=== PATIENT | female | born 1975 | race Caucasian/White ===

== ENCOUNTER → 2021-01-14 | Outpatient (CLI) | payer BC ==
[~2021-01-14] MED LIST: ACET250; ALLO100 PO; ALLO300; AMIT50 PO; AMOCLA875 PO; BENADRYL25 MG PO; CEPH500 PO; CIPR250 PO; CIPR500 PO; CITA20; CITA20 PO; CLON1 PO; CYCL10 PO; DOC250 PO; DOXY100 PO; ESCI20 PO; ESZO2; ESZO2 PO; FAMO20 PO; FLUO20 PO; Ferosul325 MG; GABA300 PO; HYDACE5 PO; HYDMOR4 PO; HYDPAM25; IBUP600 PO; IRON150C PO; KETO10 PO; KETO75 PO; LAMO5 PO; LEVFLO500 PO; LORA1 PO; LORA2 PO; MEDR150I; METO25ER; NAPR500 PO; ONDA4ODT MM; OXYACE5T PO; OXYACE7.5T; OXYACE7.5T PO; POTCIT10; PROM25 PO; PROM25S PR; PYRI100 PO; Prednisone20 MG PO; Prilosec Otc20 MG; RANI150 PO; RXCEPH500 PO; RXHYDACE PO; RXOXYACE PO; RXSULTRIDS PO; SERT100 PO; SULTRIDS PO; TAMS.4ER PO; TRAZ50; TRAZ50 PO; VENL75ER; ZOLP5 PO
== END ==
LOC: LAB SHORT 16:30 → LAB 16:30
DX: R21 Rash and other nonspecific skin eruption (principal)
CPT/HCPCS: 87798

== ENCOUNTER 2023-07-01 11:33 | Observation (INO) | payer BC ==
[~2023-07-01] VITALS: Ht 154.9 cm; Wt 71.2 kg
[~2023-07-01 11:33] MED LIST changes: +AMLO10 PO; +Ativan1 MG PO; +CELEXA40 M9 PO
[2023-07-01 12:12] LABS: BASOPHILS ABSOLUTE AUTO 0.07 K/mm3 (0.00-0.23); BASOPHILS PERCENT AUTO 1 % (0-2); EOSINOPHILS ABSOLUTE AUTO 0.01 K/mm3 (0.00-0.68); EOSINOPHILS PERCENT AUTO 0 % (0-6); Hematocrit 44.5 % (33.0-51.0); Hemoglobin 14.7 g/dL (11.5-16.0); IMMATURE GRAN ABSOLUTE AUTO 0.02 K/mm3 (0.00-0.10); IMMATURE GRAN PERCENT AUTO 0 % (0-1); LYMPHOCYTES ABSOLUTE AUTO 2.04 K/mm3 (0.84-5.20); LYMPHOCYTES PERCENT AUTO 19 % (21-46); MONOCYTES ABSOLUTE AUTO 0.56 K/mm3 (0.16-1.47); MONOCYTES PERCENT AUTO 5 % (4-13); Mean Corpuscular HGB 28.1 pg (26.0-34.0); Mean Corpuscular Volume 85 fL (80-100); NEUTROPHILS ABSOLUTE AUTO 7.86 K/mm3 (1.96-9.15); NEUTROPHILS PERCENT AUTO 74 % (41-73); Platelet Count 445 K/mm3 (150-400); RDW Coefficient Variation 13.5 % (11.7-14.2); RDW Standard Deviation 42.3 fL (35.1-46.3); Red Blood Cell Count 5.23 M/mm3 (3.80-5.20); White Blood Cell Count 10.56 K/mm3 (4.00-11.30)
[2023-07-01 12:23] LABS: Source, Urine Clean Catch
[2023-07-01 12:27] LABS: Acetaminophen, Random <2.0 ug/mL (10.0-30.0); Alanine Aminotransfer (ALT/SGP 17 U/L (12-78); Albumin, Blood 4.4 g/dL (3.4-5.0); Alk Phos 96 U/L (50-136); Anion Gap 6 mmol/L (6-16); Aspartate Aminotrans (AST/SGOT 17 U/L (12-37); Bilirubin, Total 0.4 mg/dL (0.1-1.0); Blood Urea Nitrogen 11 mg/dL (8-24); Bun/Creatinine Ratio 11.2 (12.0-20.0); CO2, Blood 21 mmol/L (21-32); Calcium, Blood 9.7 mg/dL (8.5-10.1); Chloride, Blood 111 mmol/L (98-108); Creatinine, Blood 0.98 mg/dL (0.40-1.00); Ethanol (Alcohol), Blood, Med <3 mg/dL; Globulin, Blood 4.4 g/dL (2.2-4.0); Glomerular Filtration Rate 71 (60-); Glucose, Blood 99 mg/dL (70-99); Potassium, Blood 3.3 mmol/L (3.5-5.5); Salicylate <1.7 mg/dL (2.8-20.0); Sodium, Blood 138 mmol/L (136-145); Total Protein, Blood 8.8 g/dL (6.4-8.2)
[2023-07-01 12:30] LABS: Appearance, Urine Hazy (Clear); Bilirubin, Urine Neg (Neg); Blood, Urine Neg (Neg); Color, Urine Yellow (P-Yellow); Glucose Qualitative, Urine Neg (Neg); Ketones, Urine 1+ (Neg); Leukocyte Esterase, Urine 2+ (Neg); Nitrite, Urine Neg (Neg); Protein, Urine 2+ (Neg); Specific Gravity, Urine 1.025 (1.003-1.022); Urobilinogen, Urine NORM (Normal)
[2023-07-01] MEDS ORDERED: VENL75ER PO (12:31)
[2023-07-01] MEDS ORDERED: QUET100 PO (12:31)
[2023-07-01 12:38] LABS: Red Blood Cells, Urine 0-2 /hpf (0-2)
[2023-07-01 12:39] LABS: Bacteria Few /hpf; Squamous Epithelial Cells Few /hpf (Few)
[2023-07-01 12:44] LABS: U Amphetamine Screen Not Detected; U Barbituate Screen Not Detected; U Benzodiazapine Screen Not Detected; U Buprenorphine Screen Not Detected; U Cannabinoids Screen Not Detected; U Cocaine Screen Not Detected; U Methadone Screen Not Detected; U Methamphetamine Screen Not Detected; U Opiates Screen Not Detected; U Oxycodone Screen Not Detected; U Phencyclidine Screen Not Detected
[2023-07-01 17:11] LABS: Influenza A, PCR NEGATIVE (NEGATIVE); Influenza B, PCR NEGATIVE (NEGATIVE); Resp Syncytial Virus, PCR NEGATIVE (NEGATIVE); SARS-Cov-2 (COVID-19) PCR, MMC NEGATIVE (NEGATIVE)
[2023-07-01] MEDS ORDERED: QUEtiapine Fumarate 100 MG Tab PO SCH (21:00)
[2023-07-02] MEDS ORDERED: Venlafaxine HCl 75 MG CapCR PO SCH (09:00)
[2023-07-02 09:06] VITALS: BP 125/94
[2023-07-02] MEDS ORDERED: EFFEXOR XR150 MG PO ×2 (11:59→12:02)
[2023-07-02] MEDS ORDERED: QUET100 PO (12:02)
== END 2023-07-02 12:49 | disposition home or self-care (01) ==
LOC: ER 11:33 → EOR 11:34
PROVIDERS: Student in an Organized Health Care Education/Training Program; ADMIT Emergency Medicine
DX: F33.9 Major depressive disorder, recurrent, unspecified (principal); F10.10 Alcohol abuse, uncomplicated; R45.851 Suicidal ideations; K21.9 Gastro-esophageal reflux disease without esophagitis; I10 Essential (primary) hypertension; R51.9 Headache, unspecified; Z79.899 Other long term (current) drug therapy
CPT/HCPCS: 0241U; 80053; 81001; 81025; 85025; 86592; 87086; 93005; 93010; 99285-25; A9270; G0378; G0480

== ENCOUNTER → 2023-11-16 | Outpatient (CLI) | payer BC ==
[~2023-11-16] MED LIST changes: +EFFEXOR XR150 MG PO; +HYDR1TAB94 PO; +IBUP800 PO; +QUET100 PO; +VENL75ER PO
[2023-11-16 12:49] LABS: Bacterial Vaginosis PCR Negative (NEGATIVE); Candida Group, PCR NOT DETECTED (NOT DETECT); Candida glabrata-krusei, PCR NOT DETECTED (NOT DETECT)
== END | disposition home or self-care (01) ==
LOC: LAB 10:29 → LAB SHORT 10:29
PROVIDERS: General Practice
DX: R10.2 Pelvic and perineal pain (principal)
CPT/HCPCS: 87481; 87661; 87801

== ENCOUNTER → 2024-02-12 | Outpatient (CLI) | payer BC | LOC: LAB 07:48 → LAB SHORT 07:48 | DX: R87.612 Low grade squamous intraepithelial lesion on cytologic smear of cervix (LGSIL) (principal) | CPT/HCPCS: 88305 ==

== ENCOUNTER 2024-03-19 15:24 | Emergency (ER) | payer BC ==
[~2024-03-19] VITALS: Ht 154.9 cm; Wt 74.8 kg
[2024-03-19 15:57] LABS: BASOPHILS ABSOLUTE AUTO 0.06 K/mm3 (0.00-0.23); BASOPHILS PERCENT AUTO 1 % (0-2); EOSINOPHILS ABSOLUTE AUTO 0.12 K/mm3 (0.00-0.68); EOSINOPHILS PERCENT AUTO 2 % (0-6); Hematocrit 41.7 % (33.0-51.0); Hemoglobin 13.7 g/dL (11.5-16.0); IMMATURE GRAN ABSOLUTE AUTO 0.02 K/mm3 (0.00-0.10); IMMATURE GRAN PERCENT AUTO 0 % (0-1); LYMPHOCYTES ABSOLUTE AUTO 2.73 K/mm3 (0.84-5.20); LYMPHOCYTES PERCENT AUTO 43 % (21-46); MONOCYTES ABSOLUTE AUTO 0.65 K/mm3 (0.16-1.47); MONOCYTES PERCENT AUTO 10 % (4-13); Mean Corpuscular HGB 27.4 pg (26.0-34.0); Mean Corpuscular HGB Conc 32.9 g/dL (31.5-36.5); Mean Corpuscular Volume 83 fL (80-100); Mean Platelet Volume 9.3 fL (9.1-12.4); NEUTROPHILS PERCENT AUTO 44 % (41-73); Platelet Count 421 K/mm3 (150-400); RDW Coefficient Variation 15.1 % (11.7-14.2); RDW Standard Deviation 46.1 fL (35.1-46.3); White Blood Cell Count 6.38 K/mm3 (4.00-11.30)
[2024-03-19 16:19] LABS: Albumin, Blood 3.7 g/dL (3.4-5.0); Albumin/Globulin Ratio 0.9 (0.8-1.8); Bilirubin, Total 0.2 mg/dL (0.1-1.0); Bun/Creatinine Ratio 9.2 (12.0-20.0); Calcium, Blood 9.2 mg/dL (8.5-10.1); Creatinine, Blood 0.98 mg/dL (0.40-1.00); Potassium, Blood 3.8 mmol/L (3.5-5.5); Total Protein, Blood 7.7 g/dL (6.4-8.2)
[2024-03-19] MEDS ORDERED: Hydroxyzine HCl50 MG (16:56)
[2024-03-19] MEDS ORDERED: ESZOPICLONE2 MG PO (16:56)
[2024-03-19] MEDS ORDERED: MEDROXYPRO IM (16:57)
[2024-03-19] MEDS ORDERED: NEURONTIN300 MG PO (16:57)
[2024-03-19] MEDS ORDERED: Ondansetron HCl 2 MG / ML 2ML Vial IV ONE (19:15)
[2024-03-19] MEDS ORDERED: Aspirin 81 MG Chew PO ONE (19:15)
[2024-03-19 19:49] LABS: Thyroid Stimulating Hormone 1.85 uIU/mL (0.360-4.800)
[2024-03-19 20:30] VITALS: BP 158/106
== END 2024-03-19 20:35 | disposition left against medical advice (07) ==
LOC: ER 15:24
PROVIDERS: Physician Assistant; Student in an Organized Health Care Education/Training Program
DX: R00.2 Palpitations (principal); R07.89 Other chest pain; R74.01 Elevation of levels of liver transaminase levels; K21.9 Gastro-esophageal reflux disease without esophagitis; I10 Essential (primary) hypertension; Z79.899 Other long term (current) drug therapy; Z88.1 Allergy status to other antibiotic agents
CPT/HCPCS: 71046; 80053; 84439; 84443; 84484; 85025; 93005; 93010; 96374; 99285-25; A9270; J2405